=== PATIENT | female | born 1990 | race Caucasian/White ===

== ENCOUNTER 2017-02-21 17:10 | Emergency (ER) | payer SELFPAY ==
[2017-02-21 18:20] LABS: #Eosinphils 0.1 thou/uL (0.0-0.7); #Lymphocytes 2.9 thou/uL (1.20-3.40); #Monocytes 0.8 thou/uL (0.11-0.59); #Neutrophils 9.6 thou/uL (1.40-6.50); %Basophils 0.3 % (0.0-1.0); %Eosinophils 0.8 % (0.0-10.0); %Lymphocytes 21.3 % (21.0-51.0); %Monocytes 6.2 % (0.0-10.0); Mean Platelet Volume 7.4 fL (7.4-10.4); Red Blood Cell (RBC) Count 5.06 mill/uL (4.20-5.40); White Blood Cell (WBC) Count 13.4 thou/uL (4.8-10.8)
[2017-02-21 18:47] LABS: ALT (SGPT) 82 U/L (8-55); AST (SGOT) 60 U/L (5-34); Alkaline Phosphatase 112 U/L (40-150); Anion Gap 15 mmol/L (10-20); BUN (Urea Nitrogen) 8 mg/dL (7.0-18.7); Bilirubin, Total 0.3 mg/dL (0.2-1.2); Calc. Creatinine Clearance 0 mL/min (70-130); Calcium 10.1 mg/dL (7.8-10.44); Carbon Dioxide 21 mmol/L (22-29); Chloride 104 mmol/L (98-107); Estimated GFR-MDRD Greater than 90; Protein, Total 8.5 g/dL (6.0-8.3)
[2017-02-21 19:34] LABS: Bilirubin Negative (Negative); Blood, Urine Negative (Negative); Glucose, Urine (Dipstick) Negative (Negative); Ketone, Urine Negative (Negative); Nitrite Positive (Negative); Protein, Urine (Dipstick) Negative (Neg-Trace); Urobilinogen 0.2 mg/dL (0.2-1.0)
[2017-02-21 19:36] LABS: Bacteria/HPF 4+ HPF (None Seen); Hyaline Casts/LPF 0-3 HYALINE CAST LPF (0-3 Hyaline); RBC/HPF 0-3 HPF (0-3); Squamous Epithelial 0-3 HPF (0-3)
[2017-02-21] MEDS ORDERED: Lidocaine 1% (PF) 30 ML VIAL ONE (20:27)
[2017-02-21] MEDS ORDERED: Ondansetron HCl/PF 4 MG/2 ML Vial ONE (21:04)
[2017-02-21] MEDS ORDERED: cefTRIAXone\\ROCEPHIN 2 GM VIAL ONE (21:24)
[2017-02-21] MEDS ORDERED: Ciprofloxacin 500 MG TAB ONE (22:15)
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
--- NOTE | 2017-02-22 01:35 | CON ---
DATE OF CONSULTATION: 02/21/2017 TIME OF EVALUATION: Roughly 1944. LOCATION: ER bed #9. CONSULTING PROVIDER: ER physician nursing assistant. REASON FOR EVALUATION: Suspected periurethral cyst versus abscess. HISTORY OF PRESENT ILLNESS: In brief, this is a patient who was evaluated in the ER and I was kevin olmstead for a possible gynecological input to see if this is a PRACTICE ARCHITECT issue or Urology. This patient is a 26-year-old G0, nonsexually active female with the last menstrual period about 2 weeks ago. She re ports no recent trauma, no sexual activity, and the only medication that she takes is Cymbalta for d epression. She does not have diabetes or any other chronic issues. She has never had this in the p ast. She has no distinct dysuria or frequency. She does not report fevers at home. She came in be cause she has reported this periurethral swelling over the last 2 days and now is painful. PAST MEDICAL HISTORY: Otherwise, negative. PSYCHOLOGICAL HISTORY: Significant only for depression being treated with Cymbalta. ALLERGIES: DOXYCYCLINE, which she took for acne, which gave her a rash. PHYSICAL EXAMINATION: She is afebrile and normotensive. She has had slight tachycardia when she ar rived likely due to pain with a pulse between 101 at 110. I evaluated the patient at bedside at autumn roximately 1945 hours. I found the patient to be in no acute distress, but in some degree of discom fort. The pain did not look to be severe. I evaluated the patient's perineum and found no evidence of Bartholin's gland cyst or abscess. There is slight periurethral lamas edema and on th e labia, I found a slightly fluctuant cystic area about 1.5-2 cm just underneath the urethra. This edema is just under the urethra, directly below at about 6:00 extending from 5:00 to 7:00 anterior t o the introitus. I palpated the vagina with one finger and I do not find any extension into the vag inal granados. This appears to be external urethral meatal related (related to the meatus). LABORATORY DATA: On lab assessment, she has a white blood cell count of 13. CONSULTATION: Dr. Powell with Urology did call me back regarding this patient as I had requested at the CT call him as well on the phone with him, I suggested that this require urological assessmen t at bedside to see if this was either a blocked urethral diverticulum, infected diverticulum, or in fected [place]'s glands. I discussed with Dr. Powell that this did not appear to be gynecological, bu t more urological. There was no evidence of Gale's duct cyst, Bartholin cyst, or intervaginal or igin. Dr. Powell discussed the possibility of ordering imaging, and that will be elected based on h is experience. At the end of my brief phone call with Dr. Powell, it was concluded that he would co me and assess the patient for possible I\T\D of a periurethral cyst. ASSESSMENT: This is a 26-year-old G0 with an LMP 2 weeks ago with 2 days history of a periurethral swelling. This appears to be more urethral related (possible diverticulum versus [place]'s glands) ve rsus gynecological. PLAN: 1. I suggested urology evaluation as well and Dr. Powell has been contacted. Information given to him as it was just described. 2. We will await Dr. Powell's evaluation to see this requires in and out needle aspiration. For no w, I will defer to Dr. Powell from a Urology standpoint to see what his plan of care may be.
== END 2017-02-21 22:25 | disposition home or self-care (01) ==
LOC: ERS 17:10
DX: N34.0 Urethral abscess (principal); F31.9 Bipolar disorder, unspecified; Z79.899 Other long term (current) drug therapy
CPT/HCPCS: 36415; 53060; 80053; 81003; 81015; 83605; 85025; 87070; 87076; 87077; 87086; 87186; 87205; 96365; 96375; J0696; J2001; J2270; J2405